=== PATIENT | male | born 1960 | race Caucasian/White ===

== ENCOUNTER 2016-07-13 00:16 | Emergency (ER) | payer MEDICARE, OTHER ==
[2016-07-13 00:35] VITALS: BP 123/84; PULSE 92; RESP 18; TEMP 97.1
--- NOTE | 2016-07-13 01:16 | ED ---
General Adult HPI - General Chief complaint: Back Pain/Injury Stated complaint: Back Pain Time Seen by Provider: 07/13/16 00:39 Source: patient, RN notes reviewed, old records reviewed Mode of arrival: ambulatory Limitations: no limitations - History of Present Illness Initial comments: This is a 56-year-old male to the ER for evaluationpresents here today for evaluation back pain. Patient has severe back pain, history of chronic back pain. History of back surgeries. No trauma no fevers. Patient is presenting today for evaluation of back pain medication. Medication refill. Patient states he was discharged for practice in [place] and is currently seeing a new doctor Dr. Frausto here in the ground. First evaluations in 2 weeks - Related Data Home Medications Medication Instructions Recorded Confirmed No Known Home Medications [No 07/13/16 07/13/16 Known Home Medications] Allergies Allergy/AdvReac Type Severity Reaction Status Date / Time ibuprofen [From Motrin] Allergy Rash/Hives Verified 07/13/16 00:35 Review of Systems ROS Statement: Those systems with pertinent positive or pertinent negative responses have been documented in the HPI. ROS Other: All systems not noted in ROS Statement are negative. Past Medical History Past Medical History: Osteoarthritis (OA) Additional Past Medical History / Comment(s): chronic back pain, stomach ulcer History of Any Multi-Drug Resistant Organisms: None Reported Past Surgical History: Orthopedic Surgery Additional Past Surgical History / Comment(s): back sx. Past Psychological History: No Psychological Hx Reported Smoking Status: Current every day smoker Past Alcohol Use History: None Reported Past Drug Use History: None Reported General Exam Limitations: no limitations General appearance: alert, in no apparent distress Head exam: Present: atraumatic, normocephalic, normal inspection Eye exam: Present: normal appearance, PERRL, EOMI. Absent: scleral icterus, conjunctival injection, periorbital swelling ENT exam: Present: normal exam, mucous membranes moist Neck exam: Present: normal inspection. Absent: tenderness, meningismus, lymphadenopathy Respiratory exam: Present: normal lung sounds bilaterally. Absent: respiratory distress, wheezes, rales, rhonchi, stridor Cardiovascular Exam: Present: regular rate, normal rhythm, normal heart sounds. Absent: systolic murmur, diastolic murmur, rubs, gallop, clicks GI/Abdominal exam: Present: soft, normal bowel sounds. Absent: distended, tenderness, guarding, rebound, rigid Extremities exam: Present: normal inspection, full ROM, normal capillary refill. Absent: tenderness, pedal edema, joint swelling, calf tenderness Back exam: Present: normal inspection Neurological exam: Present: alert, oriented X3, CN II-XII intact Psychiatric exam: Present: normal affect, normal mood Skin exam: Present: warm, dry, intact, normal color. Absent: rash Course Vital Signs 07/13/16 00:30 Temperature 97.1 F L Pulse Rate 92 Respiratory 18 Rate Blood Pressure 123/84 O2 Sat by Pulse 98 Oximetry - Reevaluation(s) Reevaluation #1: 07/13/16 01:16 Patient is able to airway without significant difficulty, no neurological findings Medical Decision Making - Medical Decision Making 56 male to the ED here for evaluation of back pain, chronic back pain medication refill, patient will be discharged with appropriate medications Disposition Clinical Impression: Mechanical back pain, Medication refill Disposition: HOME SELF-CARE Condition: Good Instructions: Acute Low Back Pain (ED), Chronic Back Pain (ED) Referrals: Andrés June MD [Primary Care Provider] - 1-2 days
== END 2016-07-13 01:24 | disposition home or self-care (01) ==
LOC: EC 00:16
DX: M54.9 Dorsalgia, unspecified (principal); G89.29 Other chronic pain; Z76.0 Encounter for issue of repeat prescription; F17.200 Nicotine dependence, unspecified, uncomplicated; Z88.6 Allergy status to analgesic agent; Z98.890 Other specified postprocedural states
CPT/HCPCS: 99283

== ENCOUNTER 2016-07-30 07:44 | Emergency (ER) | payer MEDICARE, OTHER ==
--- NOTE | 2016-07-30 08:21 | ED ---
Extremity Problem HPI - General Chief complaint: Extremity Problem,Nontraumatic Stated complaint: leg pain Time Seen by Provider: 07/30/16 08:11 Source: patient, RN notes reviewed Mode of arrival: wheelchair Limitations: no limitations - History of Present Illness Initial comments: 56-year-old male presents emergency Department with chief complaint of right lower extremity swelling. Patient states experiences swelling to the right lower extremity on occasion standing up. Patient states that he has a varicose vein in the back that seems to cause most of the swelling. Patient states that today he woke up and he has swelling to his leg prior to standing up so he was concerned for possible blood clot. Patient denies any history of blood clots in himself any long trips or travel but states that his family has had blood clots in the past. Patient shouldn't denies any falls traumas or injuries to the leg. Patient denies any shortness of breath or chest pain. Patient states his posterior calf and radiates up to the back of his thigh. Patient has almost any pain or swelling to the left lower extremity. Patient denies any recent fever, chills, shortness of breath, chest pain, back pain, abdominal pain , nausea vomiting, numbness or tingling, dysuria or hematuria, constipation or diarrhea, headaches or visual changes, or any other current symptoms. - Related Data Home Medications Medication Instructions Recorded Confirmed Carisoprodol [Soma] 350 mg PO TID 07/30/16 07/30/16 Previous Rx's Medication Instructions Recorded HYDROcodone/APAP 5-325MG [[place] 1 tab PO Q6HR PRN #30 tab 07/13/16 5-325] Allergies Allergy/AdvReac Type Severity Reaction Status Date / Time ibuprofen [From Motrin] Allergy Rash/Hives Verified 07/30/16 08:09 Review of Systems ROS Statement: Those systems with pertinent positive or pertinent negative responses have been documented in the HPI. ROS Other: All systems not noted in ROS Statement are negative. Past Medical History Past Medical History: Osteoarthritis (OA) Additional Past Medical History / Comment(s): chronic back pain, stomach ulcer History of Any Multi-Drug Resistant Organisms: None Reported Past Surgical History: Orthopedic Surgery Additional Past Surgical History / Comment(s): back sx. Past Psychological History: No Psychological Hx Reported Smoking Status: Current every day smoker Past Alcohol Use History: None Reported Past Drug Use History: None Reported General Exam - General Exam Comments Initial Comments: General: The patient is awake and alert, in no distress, and does not appear acutely ill. Eye: Pupils are equal, round. Ears, nose, mouth and throat: There are moist mucous membranes. Neck: The neck is supple, there is no tenderness. Cardiovascular: There is a regular rate and rhythm. No murmur, rub or gallop is appreciated. Respiratory: Lungs are clear to auscultation, respirations are non-labored, breath sounds are equal. No wheezes, stridor, rales, or rhonchi. Musculoskeletal: Normal ROM, no tenderness, There is no pedal edema. There is minimal swelling to the right calf associated with varicose vein. No pitting. Sensation intact. Pulses equal bilaterally 2+. Neurological: CN II-XII intact, There are no obvious motor or sensory deficits. Coordination appears grossly intact. Speech is normal. Skin: Skin is warm and dry and no rashes or lesions are noted. Psychiatric: Cooperative, appropriate mood & affect, normal judgment. Limitations: no limitations Course Vital Signs 07/30/16 07:47 Temperature 98.1 F Pulse Rate 90 Respiratory 20 Rate Blood Pressure 146/75 O2 Sat by Pulse 99 Oximetry Medical Decision Making - Medical Decision Making 56-year-old male presents with history varicose veins with associated swelling. This time we discussed continuing follow-up with his family care doctor. Ultrasound is reviewed and negative. We discussed return parameters all patient 's questions. He stated that he understood and he is in agreement with the Plan. All questions have been answered. At this time he will be discharged home. - Radiology Data Radiology results: report reviewed, image reviewed Disposition Clinical Impression: Varicose veins of leg with swelling Narrative: right Disposition: HOME SELF-CARE Condition: Stable Instructions: Varicose Veins (ED) Additional Instructions: Please use medication as discussed. Please follow up with family doctor if symptoms have not improved over the next two days. Please return to the emergency room if your symptoms increase or worsen or for any other concerns. Referrals: Andrés June MD [Primary Care Provider] - 1-2 days Time of Disposition: 09:45
--- NOTE | 2016-07-30 09:44 | US ---
EXAMINATION TYPE: US venous doppler duplex LE RT DATE OF EXAM: 07/30/2016 8:15 AM COMPARISON: NONE CLINICAL HISTORY: Pain. SIDE PERFORMED: right TECHNIQUE: The lower extremity deep venous system is examined utilizing real time linear array sonog liberty with graded compression, doppler sonography and color-flow sonography. VESSELS IMAGED: External Iliac Vein (EIV) Common Femoral Vein Deep Femoral Vein Greater Saphenous Vein * Femoral Vein Popliteal Vein Small Saphenous Vein * Proximal Calf Veins (* superficial vessels) Right Leg: Negative for DVT IMPRESSION: 1. No diagnostic evidence of DVT.
[2016-07-30 10:04] VITALS: BP 131/82; PULSE 85; RESP 18; TEMP 97.5
== END 2016-07-30 10:08 | disposition home or self-care (01) ==
LOC: EC 07:44
DX: I83.891 Varicose veins of right lower extremity with other complications (principal); M19.90 Unspecified osteoarthritis, unspecified site; F17.200 Nicotine dependence, unspecified, uncomplicated; Z88.6 Allergy status to analgesic agent; Z79.891 Long term (current) use of opiate analgesic
CPT/HCPCS: 99283

== ENCOUNTER → 2016-09-06 | Outpatient (CLI) | payer MEDICARE, OTHER ==
--- NOTE | 2016-09-07 09:08 | MR ---
EXAMINATION TYPE: MR cervical spine wo con DATE OF EXAM: 09/06/2016 6:49 PM COMPARISON: 10/06/2009 HISTORY: Numbness in hands and fingers Multiplanar MultiSpin echo imaging of the cervical spine was performed. Comparison: none C2-C3: No evidence for degenerative disc disease. No disc bulge/herniation or protrusion. No Canal stenosis. Foramina are patent bilaterally. C3-C4: Mild disc desiccation noted. Right paracentral hard disc results in mild effacement of the the cristian sac and right foraminal encroachment. No evidence for central stenosis. C4-C5: Mild disc desiccation. Broad-based posterocentral disc bulge with partial encapsulating spur r esulting in mild effacement of the ventral thecal sac. No evidence for central stenosis. Mild right f oraminal encroachment identified. C5-C6: Mild to moderate disc desiccation. Posterocentral broad-based disc bulge effaces the ventral t hecal sac. No evidence for herniation or central stenosis. No cord contact. Mild bilateral foraminal encroachment. C6-C7: Moderate disc desiccation. Progressive Broad-based posterocentral disc herniation effaces the ventral thecal sac without cord contact. There is mild central stenosis identified. Bilateral foramin al encroachment being moderate in degree. C7-T1: No evidence for degenerative disc disease. No disc bulge/herniation or protrusion. No Canal stenosis. Foramina are patent bilaterally. Cervical segments are intact. There is normal alignment. Cervical spinal cord is of normal signal. Craniovertebral junction relationships are within normal limits. IMPRESSION: 1. Degenerative disc disease as discussed. 2. Progressive disc herniation at C6-7 with a mild central stenosis. 3. Multilevel disc endplate complex as discussed. Multilevel foraminal encroachment as noted.
--- NOTE | 2016-09-07 09:34 | MR ---
EXAMINATION TYPE: MR lumbar spine wo/w con DATE OF EXAM: 09/06/2016 6:50 PM COMPARISON: 01/19/2012 HISTORY: Low back pain, left leg pain/weakness CONTRAST: The patient was injected with 15 mL intravenous MultiHance gadolinium contrast. Multiplanar, MultiSpin echo imaging of the lumbar spine was performed. T11-12: There is evidence of moderate disc desiccation. I cannot exclude a small extruded disc hernia tion with the disc material posterior to the T11 inferior endplate. Dedicated MRI of the thoracic spi ne is advised. T12-L1: There is moderate disc desiccation identified. Left paracentral disc bulge. L1-L2: Normal disc appearance without desiccation. No herniation, protrusion or disc bulging. No ca nal stenosis is present. Foramina are patent bilaterally. L2-L3: Normal disc appearance without desiccation. No herniation, protrusion or disc bulging. No ca nal stenosis is present. Foramina are patent bilaterally. L3-L4: Mild to moderate disc desiccation. Circumferential disc bulge with effacement of the ventral t hecal sac. Probable intermittent left lateral recess stenosis. Mild bilateral foraminal encroachment. Anterior Schmorl node involving the L4 vertebral segment. L4-L5: Mild to moderate disc desiccation. Circumferential disc bulge with effacement of the ventral t hecal sac. Mild bilateral lateral recess stenosis. No central stenosis at this time. Mild bilateral f oraminal encroachment. L5-S1: Grade 1 anterolisthesis L5 on S1 measuring 2 mm. Severe facet joint arthropathy. Severe disc d esiccation with broad-based posterior disc bulge. Left paracentral disc herniation is not excluded wi th severe left foraminal encroachment. Mild right foraminal encroachment noted. Left lateral recess s tenosis without central stenosis identified. Lumbar segments are intact. No paraspinal masses are identified. Conus medullaris has a normal appe arance. No pathologic enhancement identified at this time. IMPRESSION: 1. Multilevel degenerative disc disease. 2. I cannot exclude a small extruded disc herniation at T11-12. Dedicated MRI of the thoracic spine i s advised. 3. Disc herniation at L5-S1 paracentrally and to the left. There is also grade 1 anterolisthesis at t his level. See above.
== END | disposition home or self-care (01) ==
LOC: RADMRIMAIN 17:51
PROVIDERS: ATTEND Physician Assistant
DX: M48.02 Spinal stenosis, cervical region (principal); M50.223 Other cervical disc displacement at C6-C7 level; M50.33 Other cervical disc degeneration, cervicothoracic region; M51.27 Other intervertebral disc displacement, lumbosacral region; M43.16 Spondylolisthesis, lumbar region; M51.36 Other intervertebral disc degeneration, lumbar region
CPT/HCPCS: 72141; 72158; A9577

== ENCOUNTER 2017-09-17 05:23 | Emergency (ER) | payer MEDICARE, OTHER ==
[2017-09-17] MEDS ORDERED: SODIUM CHLORIDE 0.9% 500 ML IV STA (05:55)
[2017-09-17] MEDS ORDERED: FAMOTIDINE 20 MG/2 ML VIAL IV STA (05:55)
[2017-09-17] MEDS ORDERED: methylPREDNISolone SOD SUCCI 125 MG/2 ML VIAL IV STA (05:55)
[2017-09-17] MEDS ORDERED: diphenhydrAMINE 50 MG/ML 1 ML VIAL IVP STA (05:55)
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
[2017-09-17 07:15] VITALS: BP 123/85; PULSE 86; RESP 18; TEMP 98.1
== END 2017-09-17 07:19 | disposition home or self-care (01) ==
LOC: EC 05:23
DX: T78.40XA Allergy, unspecified, initial encounter (principal); F17.200 Nicotine dependence, unspecified, uncomplicated; Z79.899 Other long term (current) drug therapy; Z88.6 Allergy status to analgesic agent
CPT/HCPCS: 99283; 96374; 96375 ×2; 96361; J1200; J2930

== ENCOUNTER 2017-09-23 20:46 | Emergency (ER) | payer MEDICARE ==
[2017-09-23 21:03] VITALS: RESP 16
[2017-09-23] MEDS ORDERED: DIPH,PERTUS(ACELL)TETVAC-LF 0.5 ML VIAL IM ONE (21:16)
[2017-09-23] MEDS ORDERED: MORPHINE SULFATE 4 MG/ML SYRINGE IVP STA (21:16)
[2017-09-23] MEDS ORDERED: ONDANSETRON 4 MG/2 ML VIAL IVP STA (21:16)
[2017-09-23] MEDS ORDERED: SODIUM CHLORIDE 0.9% 1,000 ML IV ONE (21:17)
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
[2017-09-23] MEDS ORDERED: MORPHINE SULFATE 4 MG/ML SYRINGE IM STA (22:58)
[2017-09-23 23:24] VITALS: BP 140/85; PULSE 91; TEMP 98.7
[2017-09-24] MEDS ORDERED: MUPIROCIN 2% OINT 22 GM TUBE TOPICAL SCH (09:00)
== END 2017-09-23 23:24 | disposition home or self-care (01) ==
LOC: EC 20:46
DX: T23.352A Burn of third degree of left palm, initial encounter (principal); T22.211A Burn of second degree of right forearm, initial encounter; T23.221A Burn of second degree of single right finger (nail) except thumb, initial encounter; T22.112A Burn of first degree of left forearm, initial encounter; F17.200 Nicotine dependence, unspecified, uncomplicated; G89.29 Other chronic pain; Z79.899 Other long term (current) drug therapy; Z88.6 Allergy status to analgesic agent; Z23 Encounter for immunization; X03.0XXA Exposure to flames in controlled fire, not in building or structure, initial encounter
CPT/HCPCS: 90715; 99283; 90471; 96374; 96375; 96361; 96372; 16000; J2270; J2405